=== PATIENT | female | born 1995 | race Two or more races ===

== ENCOUNTER 2020-08-05 20:10 | Emergency (ER) | payer SELFPAY ==
[~2020-08-05] VITALS: Ht 172.7 cm; Wt 61.2 kg
--- NOTE | 2020-08-05 20:30 | NUR ---
PT AAOX4. BIBSELF C/O R SIDED FACIAL NUMBNESS X 1 DAY, PT APPEARS VERY ANXIOUS. PLACED IN BED 11 ON MONITOR AND PULSE OX. VSS.
[2020-08-05] MEDS ORDERED: LORAZEPAM 1 MG TABLET ONE (20:57)
[2020-08-05] MEDS ORDERED: LORAZEPAM 1 MG TABLET PO ONE (21:00)
--- NOTE | 2020-08-05 21:13 | NUR ---
[employer]IDGE [employer]ADER AT BEDSIDE
[2020-08-05 21:17] LABS: EOSINOPHILS % (AUTO) 0.1 % (0.0-6.0); HEMATOCRIT 36 % (33-45); HEMOGLOBIN 11.9 g/dL (11.5-14.8); LYMPHOCYTES # (AUTO) 1.4 /CMM (0.8-4.8); LYMPHOCYTES % (AUTO) 29.4 % (20.0-44.0); MEAN CORPUSCULAR HGB CONC 34 g/dl (31.0-36.0); MEAN CORPUSCULAR VOLUME 88 fL (82-100); MONOCYTES # (AUTO) 0.4 /CMM (0.1-1.30); NEUTROPHILS # (AUTO) 2.9 /CMM (1.8-8.9); NEUTROPHILS % (AUTO) 61.5 % (43.0-81.0); PLATELET COUNT (AUTO) 217 /CMM (150-450); RED BLOOD CELL COUNT(AUTO) 4.01 MIL/uL (4.0-5.2); WHITE BLOOD COUNT (AUTO) 4.8 K/uL (4.3-11.0)
[2020-08-05 21:24] LABS: CALCIUM, SERUM 8.9 mg/dL (8.5-10.1); CARBON DIOXIDE 24 mmol/L (21-32); CHLORIDE 105 mmol/L (98-107); CREATININE 0.6 mg/dL (0.6-1.3); GLUCOSE 95 mg/dL (74-106); POTASSIUM 3.6 mmol/L (3.5-5.1); SODIUM SERUM 140 mmol/L (136-145); UREA NITROGEN, BLOOD 7 mg/dL (7-18)
[2020-08-05 22:41] VITALS: BP 121/75
--- NOTE | 2020-08-05 22:41 | NUR ---
Patient discharged to home in stable condition. Written and verbal after care instructions given. Patient verbalizes understanding of instruction and RX. Pt ambulated with steady gait. vss.
== END 2020-08-05 22:42 | disposition home or self-care (01) ==
LOC: ER 20:10
DX: G51.0 Bell's palsy (principal); F41.9 Anxiety disorder, unspecified; R00.2 Palpitations; Z41.1 Encounter for cosmetic surgery; Z60.2 Problems related to living alone
CPT/HCPCS: 36415; 71045-TC; 80048-TC; 84484-TC; 85025-TC; 85378-TC

== ENCOUNTER 2020-09-05 12:50 | Emergency (ER) | payer SELFPAY ==
[~2020-09-05] VITALS: Ht 172.7 cm; Wt 59.4 kg
--- NOTE | 2020-09-05 12:55 | NUR ---
[id number] N/V & ANXIETY ATTACK. GIVEN 4MG OF ZOFRAN ODT IN FIELD. PT C/O ABDOMINAL PAIN. NO FEVER. NO DIARRHEA. NO DESATURATION. ENCOURAGED PT DBE. AWAITING FOR MD BEAN
--- NOTE | 2020-09-05 13:05 | NUR ---
MD AT BEDSIDE FOR EVALUATION
[2020-09-05] MEDS ORDERED: LORAZEPAM INJ 2 MG/ML VIAL ONE (13:09)
[2020-09-05] MEDS ORDERED: ONDANSETRON HCL/PF 4 MG/2 ML VIAL ONE ×2 (13:09→14:50)
--- NOTE | 2020-09-05 13:23 | NUR ---
PT UNABLE TO COLLECT URINE AT THIS TIME
[2020-09-05 13:27] LABS: BASOPHILS # (AUTO) 0.1 /CMM (0.0-0.2); BASOPHILS % (AUTO) 0.4 % (0.0-2.0); HEMATOCRIT 36 % (33-45); HEMOGLOBIN 12.2 g/dL (11.5-14.8); LYMPHOCYTES # (AUTO) 1.6 /CMM (0.8-4.8); LYMPHOCYTES % (AUTO) 10.9 % (20.0-44.0); MEAN CORPUSCULAR HGB CONC 34 g/dl (31.0-36.0); MEAN CORPUSCULAR VOLUME 90 fL (82-100); MONOCYTES # (AUTO) 0.5 /CMM (0.1-1.30); MONOCYTES % (AUTO) 3.3 % (2.0-12.0); NEUTROPHILS # (AUTO) 12.4 /CMM (1.8-8.9); NEUTROPHILS % (AUTO) 85.4 % (43.0-81.0); PLATELET COUNT (AUTO) 257 /CMM (150-450); RED BLOOD CELL COUNT(AUTO) 4.02 MIL/uL (4.0-5.2); WHITE BLOOD COUNT (AUTO) 14.5 K/uL (4.3-11.0)
[2020-09-05] MEDS ORDERED: IV NS 0.9% 1,000 ML BAG IV ONE (13:30)
[2020-09-05] MEDS ORDERED: ONDANSETRON HCL/PF 4 MG/2 ML VIAL IVP ONE ×2 (13:30→15:00)
[2020-09-05] MEDS ORDERED: LORAZEPAM INJ 2 MG/ML VIAL IV ONE (13:30)
[2020-09-05 13:44] LABS: CALCIUM, SERUM 8.8 mg/dL (8.5-10.1); CREATININE 0.7 mg/dL (0.6-1.3); POTASSIUM 3.1 mmol/L (3.5-5.1)
[2020-09-05 13:50] LABS: ALBUMIN 4.3 g/dL (3.4-5.0); BILIRUBIN,DIRECT 0.1 mg/dL (0.0-0.2); BILIRUBIN,TOTAL 0.3 mg/dL (0.2-1.0); TOTAL PROTEIN, SERUM 7.7 g/dL (6.4-8.2)
[2020-09-05] MEDS ORDERED: FAMOTIDINE/PF INJ 20 MG/2 ML VIAL IV ONE ×2 (14:00→14:04)
--- NOTE | 2020-09-05 14:00 | NUR ---
pt still unable to collect urine at this time
[2020-09-05 14:37] LABS: BAND % (MANUAL) 1 % (0.0-5.0); LYMPHOCYTES % (MANUAL) 9 % (16-48); MONOCYTES % (MANUAL) 5 % (0-11.0); NEUTROPHILS % (MANUAL) 85 (42-76)
--- NOTE | 2020-09-05 14:37 | NUR ---
urine collected and sent to lab
--- NOTE | 2020-09-05 14:46 | NUR ---
pt still c/o epigastric pain. MD notified with new orders noted.
[2020-09-05] MEDS ORDERED: LIDOCAINE VISCOUS 2% UD 15 ML UDC ONE ×2 (14:49→14:59)
[2020-09-05] MEDS ORDERED: MAG HYDROX/AL HYDROX/SIMETH 30 ML UDC ONE ×2 (14:49→14:59)
[2020-09-05 14:51] LABS: APPEARANCE,URINE CLEAR (CLEAR); BILIRUBIN,URINE NEGATIVE (NEGATIVE); BLOOD, URINE NEGATIVE Ery/uL (NEGATIVE); COLOR,URINE YELLOW (YELLOW); KETONES,URINE 15 (NEGATIVE); LEUKOCYTE ESTERASE ,URINE NEGATIVE (NEGATIVE); NITRITE, URINE NEGATIVE (NEGATIVE); PH,URINE 8.5 (5.0-8.0); PROTEIN,URINE NEGATIVE (NEGATIVE); UGLUCOSE NEGATIVE (NEGATIVE); UROBILINOGEN,URINE 0.2 EU/dL (0.2)
[2020-09-05] MEDS ORDERED: LIDOCAINE VISCOUS 2% UD 15 ML UDC MM ONE (15:00)
[2020-09-05] MEDS ORDERED: MAG HYDROX/AL HYDROX/SIMETH 30 ML UDC PO ONE (15:00)
--- NOTE | 2020-09-05 15:46 | NUR ---
Patient discharged to home in stable condition. Written and verbal after care instructions given. Patient verbalizes understanding of instruction. IV removed. Catheter intact and site benign. Pressure and 4x4 applied to site. No bleeding noted.
[2020-09-05 15:47] VITALS: BP 121/78
== END 2020-09-05 15:47 | disposition home or self-care (01) ==
LOC: ER 12:52
DX: R11.2 Nausea with vomiting, unspecified (principal); R10.13 Epigastric pain; Z41.1 Encounter for cosmetic surgery; Z60.2 Problems related to living alone
CPT/HCPCS: 36415; 80048; 80076; 81001; 83690; 84702; 84703; 85007; 85025; 96361; 96374; 96375; 96376; 99284; A6410; J2060; J2405 ×2; J3490; J7030; 81000-TC

== ENCOUNTER 2020-09-05 23:20 | Emergency (ER) | payer SELFPAY ==
[~2020-09-05] VITALS: Ht 172.7 cm; Wt 59.4 kg
--- NOTE | 2020-09-05 23:24 | NUR ---
PT AAOX4. C/O EPIGASTRIC PAIN; SEEN IN THE E.D. FOR THE SAME REASON TODAY, WAS D/C WITH MEDS. PT PLACED IN BED 4 ON MONITOR AND PULSE OX. LINE ESTABLISHED FARHAT Rodriguez MD AT BEDSIDE FOR EVAL. AWAITING OTHER ORDERS.
[2020-09-05] MEDS ORDERED: ONDANSETRON HCL/PF 4 MG/2 ML VIAL IVP ONE (23:30)
[2020-09-05] MEDS ORDERED: MAG HYDROX/AL HYDROX/SIMETH 30 ML UDC PO ONE (23:30)
[2020-09-05] MEDS ORDERED: LIDOCAINE VISCOUS 2% UD 15 ML UDC MM ONE (23:30)
[2020-09-05] MEDS ORDERED: PANTOPRAZOLE 40 MG VIAL IV ONE (23:30)
[2020-09-05] MEDS ORDERED: IV NS 0.9% 1,000 ML BAG IV ONE (23:30)
[2020-09-05] MEDS ORDERED: LORAZEPAM INJ 2 MG/ML VIAL IV ONE (23:30)
[2020-09-05] MEDS ORDERED: MAG HYDROX/AL HYDROX/SIMETH 30 ML UDC ONE (23:36)
[2020-09-05] MEDS ORDERED: LIDOCAINE VISCOUS 2% UD 15 ML UDC ONE (23:36)
[2020-09-05] MEDS ORDERED: PANTOPRAZOLE 40 MG VIAL ONE (23:37)
[2020-09-05] MEDS ORDERED: LORAZEPAM INJ 2 MG/ML VIAL ONE (23:37)
[2020-09-05] MEDS ORDERED: ONDANSETRON HCL/PF 4 MG/2 ML VIAL ONE (23:37)
--- NOTE | 2020-09-06 00:11 | NUR ---
IV removed. Catheter intact and site benign. Pressure and 4x4 applied to site. No bleeding noted. Patient discharged to home in stable condition. Written and verbal after care instructions given. Patient verbalizes understanding of instruction and RX. PT ambulated with steady gait. vss.
[2020-09-06 00:46] VITALS: BP 127/68
== END 2020-09-06 00:46 | disposition home or self-care (01) ==
LOC: ER 23:22
DX: F41.9 Anxiety disorder, unspecified (principal); K29.20 Alcoholic gastritis without bleeding; F10.10 Alcohol abuse, uncomplicated; Y90.9 Presence of alcohol in blood, level not specified; Z41.1 Encounter for cosmetic surgery; Z60.2 Problems related to living alone
CPT/HCPCS: 96361; 96374; 96375; 99284; C9113; J2060; J2405; J7030